=== PATIENT | female | born 1965 | race Caucasian/White ===

== ENCOUNTER 2017-04-16 13:53 | Observation (INO) | payer BC ==
--- NOTE | 2017-04-16 14:18 | RAD ---
AP CHEST: Indication: Chest pain. FINDINGS: No acute cardiopulmonary abnormality. The examination is stable to the most recent comparison dated 03-03-17. COMMENTS: No acute cardiopulmonary demonstrated. POS: [facility]
[2017-04-16] MEDS ORDERED: Nitroglycerin 2% Ointment 1 INCH/1 GM Packet ONE (14:24)
[2017-04-16 14:29] LABS: #Basophils 0.1 thou/uL (0.0-0.2); #Eosinphils 0.1 thou/uL (0.0-0.7); #Lymphocytes 2.5 thou/uL (1.20-3.40); #Monocytes 0.7 thou/uL (0.11-0.59); #Neutrophils 9.3 thou/uL (1.40-6.50); %Basophils 0.8 % (0.0-1.0); %Eosinophils 0.7 % (0.0-10.0); %Lymphocytes 19.5 % (21.0-51.0); %Monocytes 5.6 % (0.0-10.0); Hematocrit 38.6 % (36.0-47.0); Mean Platelet Volume 9.1 fL (7.4-10.4); Red Blood Cell (RBC) Count 4.33 mill/uL (4.20-5.40); White Blood Cell (WBC) Count 12.7 thou/uL (4.8-10.8)
[2017-04-16 14:34] LABS: PTT 31.4 SEC (22.9-36.1); Prothrombin Time 12.6 SEC (12.0-14.7)
[2017-04-16 14:45] LABS: ALT (SGPT) 9 U/L (8-55); AST (SGOT) 9 U/L (5-34); Alkaline Phosphatase 89 U/L (40-150); Anion Gap 15 mmol/L (10-20); BUN (Urea Nitrogen) 13 mg/dL (9.8-20.1); Bilirubin, Total 0.3 mg/dL (0.2-1.2); CK (CPK) 34 U/L (29-168); Calc. Creatinine Clearance 0 mL/min (70-130); Calcium 8.6 mg/dL (7.8-10.44); Carbon Dioxide 24 mmol/L (22-29); Chloride 106 mmol/L (98-107); Estimated GFR-MDRD Greater than 90; Globulin 2.7 g/dL (2.4-3.5); Lipase 17 U/L (8-78); Protein, Total 6.4 g/dL (6.0-8.3); Troponin I Less than 0.010 ng/mL (< 0.028)
[2017-04-16 16:38] VITALS: BMI 31.4
[2017-04-16] MEDS: Nitroglycerin 2% Ointment 1 INCH/1 GM Packet TOP SCH ×2 (17:22→23:09)
[2017-04-16 17:45] LABS: Troponin I Less than 0.010 ng/mL (< 0.028)
[2017-04-16] MEDS: Metoprolol Tartrate 25 MG TAB PO SCH (20:29)
[2017-04-16 20:58] LABS: Troponin I Less than 0.010 ng/mL (< 0.028)
--- NOTE | 2017-04-16 20:58 | CT ---
CT CHEST CT ABDOMEN AND PELVIS AORTIC DISSECTION PROTOCOL 04/16/17 CLINICAL HISTORY: Chest pain, evaluation for aortic dissection. FINDINGS: Streak artifact from adjacent venous contaminate does limit assessment of the thoracic aorta. There is no definite acute aortic dissection. There is peripherally located calcified and noncalcified brittany que of the aorta. No evidence of aortic aneurysm or periaortic hematoma. 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 There is granulomatous calcification of the ches t. Mild pericardial effusion present. Heterogeneous enhancement of the liver and spleen present on t he basis of arterial phase scan. There is a hyperdensebattery pack of a neural stimulator device of the left lower flank subcutaneous tissues producing streak artifact. There is postoperative intradis china prosthesis of the lumbosacral junction. IMPRESSION: No evidence of an acute aortic dissection, aneurysm, or periaortic hematoma. There is diffuse calcif ied and noncalcified aortic plaque. Additional details are described above. POS: [facility]
[2017-04-16] MEDS ORDERED: Atorvastatin Calcium 40 MG TAB PO SCH (21:00)
[2017-04-16] MEDS ORDERED: clonazePAM 0.5 MG TAB PO SCH (21:00)
[2017-04-16] MEDS: TICAGRELOR 90 MG TABLET PO SCH (21:17)
[2017-04-16] MEDS ORDERED: HYDROcodone/Acetaminophen 7.5/325 mg Tablet PO PRN (21:18)
--- NOTE | 2017-04-17 01:59 | HP ---
HISTORY OF PRESENT ILLNESS: This is a 51-year-old white female being admitted for chest pain. The patient has a history of coronary artery disease, hypertension, hyperlipidemia who on 03/06 underwen t cardiac catheterization with placement of 2 stents. She had persistent chest pain and on 03/26 of this year had an additional stent placed. These were performed by Dr. Perdomo. The patient was doing well until approximately 2 weeks ago, developed an upper respiratory infection, she had a pers isting cough. One week ago, the patient was treated with Levaquin by Dr. Patricia. I believed yesterda y was her last dose; however, the patient continues to have a slight cough. Also for the past 3 day s, she has been having marked upper chest and neck pain bilaterally. Her cough has improved dramati cheo; however, she complains of pain with cough and movement. PAST MEDICAL HISTORY: Hypertension, hyperlipidemia, history of pheochromocytoma, status post resect ion in 2016 and tobacco abuse. PAST SURGICAL HISTORY: Include, lumbar surgery, hysterectomy, cholecystectomy, and placement of a n luciana stimulator on her back, bladder surgery, adrenal tumor removal for pheochromocytoma. MEDICATIONS: Lisinopril 20 mg q.a.m., Advil 800 b.i.d. p.r.n., Lipitor 40 mg daily, Zoloft 100 mg d ail, clonazepam 0.5 mg p.o. at bedtime, metoprolol 25 mg b.i.d., Brilinta 90 mg b.i.d., aspirin 81 mg daily. ALLERGIES: None. SOCIAL HISTORY: She smokes 1-1/2 packs of cigarettes per day for the past 30 years. She rarely dri nks alcohol. FAMILY HISTORY: Father had a NC at the age of 54, and a history of atrial fibrillation. Maternal g randfather with lung cancer. Maternal grandmother with colon cancer. Paternal grandmother with cer vical cancer. REVIEW OF SYSTEMS: As above. PHYSICAL EXAMINATION: VITAL SIGNS: Temperature 99.2, pulse 95, respirations 18, pulse ox 92, blood pressure 135/82. HEENT: Clear. HEART: Regular rate and rhythm. LUNGS: Clear. ABDOMEN: Soft. EXTREMITIES: No cyanosis, clubbing, edema. LABORATORY AND X-RAY FINDINGS: White count 12.7, H\T\H 13 and 38. Electrolytes normal. Creatinine 0.66, BUN 13, glucose 111, troponin less than 0.010 x2. Chest x-ray negative. ASSESSMENT: 1. Recurrent chest pain, rule out myocardial infarction; however, doubtful. Patient has marked cos tochondral tenderness on palpation, most likely due to costochondritis; however, must rule out also an aortic dissection. 2. Coronary artery disease, status post stent placement on 03/06/2017 and 03/26/2017. 3. Hypertension. 4. Hyperlipidemia. 5. Tobacco abuse. 6. Positive family history of heart disease. 7. History of pheochromocytoma excision. 8. Chronic back pain. PLAN: 1. Discuss with Dr. Salguero. Plan to do a CT angiogram of the chest to rule out aortic dissection . 2. Ice pack to chest. 3. Continue home medications. 4. Hopefully, can discharge in the a.m.
--- NOTE | 2017-04-17 02:05 | CON ---
DATE OF CONSULTATION: 04/16/2017 HISTORY OF PRESENT ILLNESS: Susan Eller is a 51-year-old white female with known coronary artery disease. In 02/2014, she underwent cardiac catheterization by Dr. Perdomo after an abnormal stress study. She had no left main disease and no LAD disease. The circumflex distal to the second obtuse marginal branch had 30-40% stenosis. The right coronary artery had 20-30 % mid stenosis. Ejection fraction was 50-55%. She did well until 02/28/2017. She had several episodes of chest pain lasting one-half hour. On 03/03/17, she had onset of pain at 9 a.m. that did not resolve and continued the whole day. Ultimately, she came to the emergency room at 17:33. She was given 1/2 inch nitro paste and aspirin 324 orally. She went to the telemetry, continued to have chest pain, was given 3 sublingual nitroglycerins and her pain dramatically improved and resolved. She did have positive cardiac enzymes. The day after admission, she then was taken to the cardiac cath rn by Dr. Perdomo. The left main, the LAD had no stenosis. She had 50% distal circumflex stenosis and then total occlusion of the distal circumflex. The right coronary artery had an 80% mid stenosis. She then underwent stent placement of the circumflex with Synergy 2.5 x 24 and 3.0 x 20. She was discharged on Brilinta. She continued to smoke after stent placement, although she had cut down. She then was brought back to the cardiac cath rn on 03/26/17 and underwent placement of Synergy 3.0 x 12 mm stent in the proximal RCA. This was postdilated with a 3.5 mm balloon. Perclose ProGlide was used for closure and she was discharged the same day. She states she has been compliant with her medicines. Approximately 1 week ago , she had an upper respiratory infection and was placed on antibiotics per a primary doctor. She states she has significant amount of coughing. Then 3 days ago, she started noticing a central chest pressure in the upper part of her chest that radiated to both sides of her neck. She states over the last 3 days, this pain has been continuous and unrelenting. The pain does not appear to be pleuritic in nature. She states the pain is worse if she is leaning forward and feels better when she is supine in bed. She came to the emergency room for further evaluation. PAST MEDICAL HISTORY: Hypertension, hypercholesterolemia. No history of diabetes. She has a history of pheochromocytoma. PAST OPERATIONS: Lumbar surgery, hysterectomy, cholecystectomy, placement of a nerve stimulator in her back, bladder surgery, removal of adrenal tumor that sounds like a pheochromocytoma. After that, she said her blood pressures are much easier to control. Coronary stent placement as above. CURRENT MEDICATIONS: Include aspirin 81 daily, Brilinta 90 mg b.i.d., sertraline 100 at bedtime, metoprolol 25 b.i.d., lisinopril 20 q.a.m., Advil 800 b.i.d., atorvastatin 40 at bedtime, clonazepam 1 tablet at bedtime. ALLERGIES: ADHESIVE TAPE. SOCIAL HISTORY: She smoked one and one half packs per day, but then he has cut down to several cigarettes per day. She rarely drinks. FAMILY HISTORY: Father had myocardial infarction in his 50s. REVIEW OF SYSTEMS: Twelve-point review of systems otherwise unremarkable. PHYSICAL EXAMINATION: VITAL SIGNS: Blood pressure 135/82, pulse of 95. HEENT: PERRL. NECK: Supple. CHEST: Clear. CARDIAC: S1 and S2 are normal, without any S3, S4, murmurs or rubs. Carotid upstrokes normal, without bruits. ABDOMEN: Normal bowel sounds, without tenderness or organomegaly. EXTREMITIES: Revealed no clubbing, cyanosis or edema. NEUROLOGIC: Grossly intact. SKIN: Warm and dry. MUSCULOSKELETAL: She does have mild palpable upper chest tenderness. LABORATORY DATA: EKG revealed sinus tachycardia with rate of 102 per minute. Poor R wave progression in V1-V2. There are no acute changes on the EKG. White count 12,700, hemoglobin 13.6, hematocrit 38.6, platelets 219,000. INR 0.9. Sodium 141, potassium 3.6, chloride 106, carbon dioxide 24, BUN 13, creatinine 0.66. Cardiac enzymes x2 are completely normal. IMPRESSION: 1. Noncardiac chest pain. At the present time with placement of coronary stents 3 weeks and 6 weeks ago, it is too early for in-stent restenosis. She does not have any evidence of acute stent thrombosis -- normal enzymes, even after 3 days of chest pain continuously and no acute changes on her EKG. I doubt that her pain is cardiac in nature. 2. Recent upper respiratory infection/possible bronchitis. 3. Kvx-NY-lmlajmony myocardial infarction in 02/2017, with placement of drug- eluting stents in the distal circumflex, that was totally occluded. She then returned 3 weeks ago to have a stent placed in the right coronary artery which also was a drug-eluting stent. 4. Hypertension. 5. Hypercholesterolemia. 6. Smoker. 7. Positive family history. 8. History of pheochromocytoma. PLAN: Ms. Eller's chest discomfort is not cardiac in nature. She does have some minimal palpable tenderness over the area. The most potentially life threatening problem that she could have causing this pain would be an aortic dissection and I will have her undergo CT angiography to rule out dissection. We will follow the patient with you. ALLAN
[2017-04-17] MEDS ORDERED: Ibuprofen 800 MG TAB PO PRN (08:13)
--- NOTE | 2017-04-17 08:46 | PRG ---
DATE OF SERVICE: 04/17/2017 TIME: 8:15 a.m. SUBJECTIVE: The patient continues to complain of sternal chest pain, worse on the left side radiati ng into the left neck. This is unrelieved with nitroglycerin overnight. She does get some temporar y relief with morphine, but she says it wears off rather quickly. Nothing else has been tried here in the hospital yet. PHYSICAL EXAMINATION: VITAL SIGNS: Temperature 98.7, pulse 87, respirations 16, blood pressure 147/79. GENERAL: This is a well-developed, well-nourished female in no apparent distress. NECK: Supple, with no lymphadenopathy, no carotid bruits heard. LUNGS: Chest is clear to auscultation bilaterally. CARDIOVASCULAR: Heart is regular rate and rhythm with no murmurs. There is reproducible costostern al chest pain at the level of the 4th and 5th rib on the left. She does state that the pain on exam is consistent with the same pain that she has been having over the last several days. ABDOMEN: Soft, nontender, nondistended with normoactive bowel sounds. EXTREMITIES: Show no clubbing, cyanosis, or edema. NEUROLOGIC: Nonfocal. LABS: Three sets of cardiac enzymes are negative with troponin less than 0.01. BNP is 53. CBC and CMP are normal. CT of the chest, abdomen, and pelvis with aortic dissection protocol showed no frandy dence of acute aortic dissection, aneurysm repair, aortic hematoma. There is diffuse calcified and noncalcified aortic plaque. ASSESSMENT: This is a 51-year-old female with a known history of coronary artery disease with recen t stent placement in February and March, presenting with left-sided sternal chest pain. 1. CT angio was negative for aortic dissection, however, no assessment was made of her coronary art eries. Dr. Perdomo has been consulted and has made the patient n.p.o. this morning. I am not cer tain what testing he wants to do, but will touch base with him today. 2. My suspicion is that her chest pain is actually costochondritis. For that reason, we will start her on high dose ibuprofen 800 mg t.i.d. and see if we can get some relief of her discomfort. It s eems to me that her pain is very reproducible on exam. 3. Hypertension. 4. Hypercholesterolemia. 5. Current smoker despite recommendations to quiet. This was addressed again this morning. 6. Disposition is dependent on what Dr. Perdomo orders and what we find regarding her coronary ar teries. If all appears well from a cardiac standpoint, she could potentially be discharged home for treatment of costochondritis as an outpatient.
[2017-04-17] MEDS ORDERED: Aspirin 325 MG TAB PO SCH (09:00)
[2017-04-17] MEDS ORDERED: Lisinopril 20 MG TAB PO SCH (09:00)
[2017-04-17] MEDS ORDERED: Ketorolac Tromethamine 30 MG/ML VIAL IVP SCH (11:45)
[2017-04-17 11:47] VITALS: BP 136/84
[2017-04-17] MEDS: Metoprolol Tartrate 25 MG TAB PO SCH (11:47)
[2017-04-17] MEDS: TICAGRELOR 90 MG TABLET PO SCH (11:47)
[2017-04-17 11:53] VITALS: TEMP 98.2
--- NOTE | 2017-04-17 14:53 | PRG ---
DATE OF SERVICE: 04/17/2017 SUBJECTIVE: Ms. Eller has continued to complain of chest pain. States it is 8/10, constant, wors e with sitting up. It is sharp in nature. Her CKs and troponins have all been negative. She recen mary kay underwent stent placement to the right coronary artery after an acute [place] in addition to a stent placement to the circumflex artery. PHYSICAL EXAMINATION: VITAL SIGNS: Blood pressure 136/84, pulse 73, temperature 98.2. LUNGS: Clear to auscultation. CARDIAC: Regular rate and rhythm with no new rubs, murmurs, thrills, or gallops. CHEST: She does have chest wall tenderness. ABDOMEN: Soft, nontender, nondistended. EXTREMITIES: No significant edema. IMPRESSION: 1. Chest wall pain. 2. Coronary artery disease. 3. Tobacco abuse. RECOMMENDATIONS: Ms. Baca symptoms are not felt to be consistent with acute coronary syndrome or angina. Her symptoms are reproducible and constant and positional. At this point, I would continu e ibuprofen. Will give 1 dose of Toradol. If her symptoms have improved, it would be okay from my standpoint to discharge home with close outpatient followup.
== END 2017-04-17 15:30 | disposition home or self-care (01) ==
LOC: SCSER 13:53 → 2SW 15:16
PROVIDERS: ADMIT Family Medicine; ATTEND Family Medicine
DX: R07.89 Other chest pain (principal); I25.10 Atherosclerotic heart disease of native coronary artery without angina pectoris; I25.2 Old myocardial infarction; I10 Essential (primary) hypertension; E78.00 Pure hypercholesterolemia, unspecified; F17.210 Nicotine dependence, cigarettes, uncomplicated; Z88.5 Allergy status to narcotic agent; Z88.8 Allergy status to other drugs, medicaments and biological substances; Z91.048 Other nonmedicinal substance allergy status; Z79.82 Long term (current) use of aspirin; Z79.899 Other long term (current) drug therapy; Z95.5 Presence of coronary angioplasty implant and graft; Z82.49 Family history of ischemic heart disease and other diseases of the circulatory system
CPT/HCPCS: 36415; 71010; 71275; 80053; 82550; 82553; 83690; 83880; 84484; 85025; 85610; 85730; 93005; 96374; 96375; 96376; G0378; J1885; J2270; J7620

== ENCOUNTER 2017-10-17 12:47 | Outpatient (CLI) | payer BC | END 2017-10-17 12:48 | disposition home or self-care (01) | LOC: BICCT 12:47 | PROVIDERS: ATTEND Family Medicine | DX: M54.16 Radiculopathy, lumbar region (principal); M54.6 Pain in thoracic spine; M47.892 Other spondylosis, cervical region; M99.81 Other biomechanical lesions of cervical region; Z98.890 Other specified postprocedural states | CPT/HCPCS: 72125; 72128; 72131 ==

== ENCOUNTER 2017-11-03 14:50 | Inpatient (IN) | payer BC ==
--- NOTE | 2017-11-03 15:09 | RAD ---
CHEST ONE VIEW: History: Chest pain. Comparison: 04-16-17 FINDINGS: Cardiac silhouette and pulmonary vasculature are unremarkable. Mediastinum is midline. Dorsal column stimulator leads overlie the thoracic spine. Calcified granulomata throughout the lungs are consisten t with healed granulomatous disease. No lobar consolidation or evidence of pneumothorax. Cardiac robert tor leads overlie the chest. IMPRESSION: 1. No active cardiopulmonary abnormalities are demonstrated. POS: [facility]
[2017-11-03 15:14] LABS: Hemoglobin 13.2 g/dL (12.0-16.0); Mean Corpuscular HGB CONC 34.5 g/dL (32.0-36.0); Mean Corpuscular Hemoglobin 32.1 pg (27.0-31.0); Mean Corpuscular Volume 93.3 fl (81.0-99.0); Mean Platelet Volume 7.9 fL (7.4-10.4); Platelet Count 131 thou/uL (130-400); RBC Distribution Width 12.2 % (11.5-14.5); Red Blood Cell (RBC) Count 4.09 mill/uL (4.20-5.40); White Blood Cell (WBC) Count 8.8 thou/uL (4.8-10.8)
[2017-11-03 15:20] LABS: INR-International Normal Ratio 1.1; Prothrombin Time 14.6 SEC (12.0-14.7)
[2017-11-03] MEDS ORDERED: Ondansetron ODT 4 MG TAB ONE (15:29)
[2017-11-03 15:36] LABS: Band 17 % (5-11); Lymphocytes 7 % (21-51); MDiff Complete? YES; Monocytes 3 % (0-10); Neutrophil 72 % (42-75); PLT Morphology Comment Appears Adequate; RBC Morphology Normal
[2017-11-03 15:38] LABS: ALT (SGPT) 11 U/L (8-55); AST (SGOT) 11 U/L (5-34); Albumin 3.5 g/dL (3.5-5.0); Alkaline Phosphatase 68 U/L (40-150); Anion Gap 15 mmol/L (10-20); BUN (Urea Nitrogen) 18 mg/dL (9.8-20.1); Bilirubin, Total 0.9 mg/dL (0.2-1.2); CK (CPK) 163 U/L (29-168); Calc. Creatinine Clearance 0 mL/min (70-130); Calcium 7.7 mg/dL (7.8-10.44); Carbon Dioxide 22 mmol/L (22-29); Chloride 98 mmol/L (98-107); Estimated GFR-MDRD 48; Glucose 147 mg/dL (70-105); Lipase 4 U/L (8-78); Potassium 3.1 mmol/L (3.5-5.1); Protein, Total 5.5 g/dL (6.0-8.3); Sodium 132 mmol/L (136-145)
[2017-11-03 15:42] LABS: CKMB 2.1 ng/mL (0-6.6); Troponin I Less than 0.010 ng/mL (< 0.028)
[2017-11-03] MEDS ORDERED: Piperacillin/Tazobactam 2.25 GM VIAL ONE (15:42)
[2017-11-03 16:34] LABS: Bilirubin Small (Negative); Blood, Urine Moderate (Negative); Clarity TURBID (Clear); Glucose, Urine (Dipstick) Negative (Negative); Leukocyte Large (Negative); Nitrite Negative (Negative); Protein, Urine (Dipstick) 100 mg/dL (Neg-Trace); Specific Gravity, Urine 1.014 (1.002-1.036); Urobilinogen 0.2 mg/dL (0.2-1.0); pH, Urine 5.5 (5.0-9.0)
[2017-11-03 16:37] LABS: Bacteria/HPF 1+ HPF (None Seen); Hyaline Casts/LPF 4-6 HYALINE CAST LPF (0-3 Hyaline); Pathc Cast-AUWi Flag 1.59 (0-2.49)
[2017-11-03 16:39] LABS: Yeast-AUWi Flag 123.5 (0-25.0)
[2017-11-03 16:47] LABS: Yeast-All Forms None Seen HPF (None Seen)
[2017-11-03] MEDS ORDERED: Acetaminophen 500 MG TAB ONE (18:01)
[2017-11-03] MEDS ORDERED: Ondansetron HCl/PF 4 MG/2 ML Vial IVP PRN (18:36)
[2017-11-03] MEDS ORDERED: Ondansetron ODT 4 MG TAB SL PRN (18:36)
[2017-11-03 18:55] LABS: Lactic Acid 0.7 mmol/L (0.5-2.2)
--- NOTE | 2017-11-03 19:30 | RAD ---
ONE VIEW CHEST: HISTORY: Central line placement. COMPARISON: 11/03/2017 FINDINGS: Portable upright chest demonstrates a right-sided central venous catheter, with the distal tip projec ting over the superior vena cava. No pneumothorax. Redemonstration of a stable cardiac silhouette a nd changes due to previous granulomatous disease. Interval development of opacities in both lung bas es, which is presumed to be due to infiltrate. Dorsal column stimulator is redemonstrated. IMPRESSION: 1. Interval opacification in the lung bases suggesting infiltrate. 2. Changes due to previous granulomatous disease. 3. Right-sided central venous catheter placement. No pneumothorax. The distal tip projects over th e superior vena cava. POS: [facility]
[2017-11-03] MEDS ORDERED: Sodium Chloride 0.9% 1,000 ML IV SCH (19:43)
[2017-11-03] MEDS ORDERED: HYDROcodone/Acetaminophen 5/325 mg Tablet PO PRN (19:43)
[2017-11-03] MEDS ORDERED: Ondansetron ODT 4 MG TAB PO PRN (19:43)
[2017-11-03 20:07] LABS: #Lymphocytes 0.7 thou/uL (1.20-3.40); #Monocytes 0.6 thou/uL (0.11-0.59); #Neutrophils 5.8 thou/uL (1.40-6.50); %Basophils 0.4 % (0.0-1.0); %Eosinophils 0.2 % (0.0-10.0); %Lymphocytes 10.2 % (21.0-51.0); %Monocytes 7.7 % (0.0-10.0); %Neutrophils 81.6 % (42.0-75.0); Hemoglobin 11.8 g/dL (12.0-16.0); Mean Corpuscular HGB CONC 34.4 g/dL (32.0-36.0); Mean Corpuscular Volume 93.1 fl (81.0-99.0); Mean Platelet Volume 7.9 fL (7.4-10.4); Platelet Count 123 thou/uL (130-400); RBC Distribution Width 12.2 % (11.5-14.5); Red Blood Cell (RBC) Count 3.69 mill/uL (4.20-5.40); White Blood Cell (WBC) Count 7.1 thou/uL (4.8-10.8)
--- NOTE | 2017-11-03 20:41 | HP ---
DATE OF ADMISSION: 11/03/2017 CHIEF COMPLAINT: Intractable nausea and vomiting. HISTORY OF PRESENT ILLNESS: This is a 52-year-old morbidly obese white female with known history of coronary artery disease status post stents x3, the last stent in March of last year. The patient was in her usual state of health until she started having nausea and vomiting. This was on Friday , which progressed to having a diarrhea yesterday. She was having some chills and rigors, but did no t check her fevers and she was having severe headache and, body pains and severe weakness, so when vashti johnathan came to the ER, she had very low blood pressures of 105/70 with a known history of hypertension on lisinopril and her heart rate was 110, so she was started on 3 liters of nasal cannula and her blood pressures still remained low at 90/45 with still being tachycardic. Patient denies having any chest pain. She does have nausea. No dizziness. No abdominal pain, but she does have burning on passing urine, frequent urination. She denies having any sick contact. She had a UA done in the ER which sh owed a flank evidence of urinary tract infection. She had a chest x-ray with no evidence of any acut e cardiopulmonary abnormalities were noted. The patient having low blood pressures, so she was started on central line in a view to start on pres sors, so she was admitted to the IMCU at this time. The patient is seen in the IMCU. She was alert and oriented. She had blood pressures and did come up with the fluids. PAST MEDICAL HISTORY: 1. Coronary artery disease. 2. Hypertension. 3. Hyperlipidemia. 4. History of pheochromocytoma, status post resection in 2015. PAST SURGICAL HISTORY: 1. History of pheochromocytoma, status post resection in 2015. 2. Coronary artery disease, status post stent in 2016. 3. History of hysterectomy. 4. History of cholecystectomy. 5. History of placement of neck stimulator on her back. 6. History of bladder surgery. 7. Adrenal tumor, removal of pheochromocytoma which explained above. ALLERGIES: No known drug allergies. SOCIAL HISTORY: The patient smokes one and half pack a day for the past 30 years. No history of alc ohol, no history of illicit drug use. FAMILY HISTORY: Father had [place] at age 54, history of atrial fibrillation, maternal grandfather had jayant ng cancer and maternal grandmother had a colon cancer. REVIEW OF SYSTEMS: All 12 systems are reviewed with the patient thoroughly and found to be negative at this time except the ones described in HPI. The following complete review of systems was negative , unless otherwise mentioned in the HPI or below: Constitutional: Weight loss or gain, sense of wel l-being, ability to conduct usual activities, exercise tolerance. Skin/Breast: Rash, itching, chung es in hair growth or loss, nail changes, breast lumps, tenderness, swelling, nipple discharge. Eyes: Vision, double vision, tearing, blind spots, pain. ENT/Mouth: Headaches (location, time of onset, duration, precipitating factors), vertigo, lightheade dness, injury. Vision, double vision, tearing, blind spots, pain, nose bleeding, colds, obstruction, discharge, dental difficulties, gingival bleeding, dentures, neck stiffness, pain, tenderness, masses in thyroid or other areas. Cardiovascular: Precordial pain, substernal distress, palpitations, syn cope, dyspnea on exertion, orthopnea, nocturnal paroxysmal dyspnea, edema, cyanosis, hypertension, he art murmurs, varicosities, phlebitis, claudication. Respiratory: Pain, shortness of breath, wheezin g, stridor, cough, hemoptysis, fever or night sweats. Gastrointestinal: Poor appetite, dysphagia, i ndigestion, abdominal pain, heartburn, eructation, nausea, vomiting, hematemesis, jaundice, constipat ion, or diarrhea, abnormal stools (asif-colored, tarry, bloody, greasy, foul smelling), flatulence, h emorrhoids, recent changes in bowel habits. Genitourinary: Urgency, frequency, dysuria, nocturia, h ematuria, polyuria, oliguria, unusual (or change in) color of urine, stones, hesitancy, change in siz e of stream, dribbling, acute retention or incontinence, libido, potency. Musculoskeletal: Pain, sw elling, redness or heat of muscles or joints, limitation, of motion, muscular weakness, atrophy, cram ps. Neurologic/Psychiatric: Convulsions, paralyses, tremor, incoordination, parasthesias, difficulties w ith memory of speech, sensory or motor disturbances, or muscular coordination (ataxia, tremor), emoti onal problems, anxiety, depression, previous psychiatric care, unusual perceptions, hallucinations. Allergy/Immunologic: Skin rash, anemia, bleeding tendency, polydipsia, polyuria, intolerance to heat or cold. HOME MEDICATIONS: 1. Aspirin 81 mg p.o. daily. 2. Atorvastatin 40 mg p.o. daily. 3. Clonazepam 1 tablet p.o. daily at bedtime. 4. Ibuprofen 800 mg p.o. b.i.d. 5. Lisinopril 20 mg p.o. daily. 6. Metoprolol 25 mg p.o. b.i.d. 7. Sertraline 100 mg p.o. at bedtime. 8. Ticagrelor 90 mg p.o. daily. PHYSICAL EXAMINATION: VITAL SIGNS: Blood pressures are 125/80, heart rate is 88, respirations 18, saturation 98%. GENERAL: The patient is moderately built morbidly obese. She is alert, oriented x3. HEENT: Atraumatic, normocephalic. PERRLA. Extraocular movements were intact. Oral mucosa pink and moist. CARDIOVASCULAR: S1, S2 normal. No murmurs, rubs or gallops. LUNGS: Bilateral air entry was equal. No wheezing, no crackles. ABDOMEN: Soft, nontender, no guarding, no rebound tenderness. Bowel sounds normal. MUSCULOSKELETAL: No calf tenderness. No pedal edema. No joint tenderness, no joint swelling. SKIN: No cyanosis, no erythema, no rash, no pallor. CENTRAL NERVOUS SYSTEM: Cranial examination II-XII intact. No focal deficits are noted. PSYCHIATRIC: No signs of suicidal ideation. No signs of noel. No signs of depression was noted. LABORATORY DATA: Sodium is 132, potassium 3.1, chloride is 98, BUN is 18, creatinine is 1.18. Lacti c acid is 2.7. BNP is 43. WBC is 8.8, hemoglobin is 13.2. Bands of 17. UA was positive for urinar y tract infection. IMAGING STUDIES: Chest x-ray was reviewed by me which showed no evidence of any acute cardiopulmonar y process. ASSESSMENT: 1. Septic shock. 2. Acute pyelonephritis. 3. Severe dehydration. 4. Acute kidney injury. 5. History of coronary artery disease. 6. Hyperlipidemia. PLAN: 1. Plan is to continue the patient on IV fluids at 150 mL an hour, will closely monitor and if neede d, we will start the patient on pressors. The patient has a central line placed in the ER. We will start the patient on IV antibiotics with a broad spectrum starting on Zosyn and vancomycin as per [facility] protocol. 2. The patient has history of coronary artery disease. No evidence of any chest pain. We will cont inue with IV fluids and continue the patient on aspirin and ticagrelor and the beta blockers. 3. We will hold off on the lisinopril. 4. Patient has severe dehydration as explained above. We will just continue the patient on IV fluid s at 150 an hour. We will closely monitor the urine output. 5. The patient has history of hyperlipidemia. We will continue the patient on the home medications atorvastatin. 6. Code status has been discussed. The patient is FULL code. 7. Deep venous thrombosis prophylaxis. Lovenox 40 mg subcu daily. I spent 75 minutes with this patient of this one hour as a critical care time.
[2017-11-03] MEDS: Sodium Chloride 0.9% 1,000 ML IV SCH (20:43)
[2017-11-03] MEDS ORDERED: Vancomycin HCl 1 GM in Sodium Chloride 0.9% 250 ML 250 ML IVPB SCH (21:00)
[2017-11-03] MEDS: Metoprolol Tartrate 25 MG TAB PO SCH (21:46)
[2017-11-03] MEDS: Famotidine 20 MG TAB PO SCH (21:47)
[2017-11-03] MEDS: Docusate 100 MG CAP PO SCH (21:47)
[2017-11-03] MEDS: Atorvastatin Calcium 40 MG TAB PO SCH (21:48)
[2017-11-03] MEDS: clonazePAM 0.5 MG TAB PO SCH (21:48)
[2017-11-03] MEDS: Acetaminophen 325 MG TAB PO PRN (21:48)
[2017-11-03] MEDS: TICAGRELOR 90 MG TABLET PO SCH (21:52)
[2017-11-03] MEDS: Piperacillin/Tazobactam 4.5 GM in Sodium Chloride 0.9% 100 ML IVPB SCH (23:27)
[2017-11-03] MEDS ORDERED: Piperacillin/Tazobactam 3.375 GM in Sodium Chloride 0.9% 100 ML IVPB SCH (23:59)
[2017-11-04] MEDS: Sodium Chloride 0.9% 1,000 ML IV SCH ×3 (03:25→17:41)
[2017-11-04] MEDS ORDERED: Vancomycin HCl 1.5 GM in Sodium Chloride 0.9% 250 ML 300 ML IVPB SCH (04:00)
[2017-11-04] MEDS: Piperacillin/Tazobactam 4.5 GM in Sodium Chloride 0.9% 100 ML IVPB SCH ×3 (06:36→17:39)
[2017-11-04] MEDS: Acetaminophen 325 MG TAB PO PRN (06:36)
[2017-11-04 07:25] LABS: Anion Gap 13 mmol/L (10-20); BUN (Urea Nitrogen) 9 mg/dL (9.8-20.1); Calc. Creatinine Clearance 139 mL/min (70-130); Calcium 7.5 mg/dL (7.8-10.44); Carbon Dioxide 21 mmol/L (22-29); Chloride 101 mmol/L (98-107); Estimated GFR-MDRD 81; Glucose 119 mg/dL (70-105); Sodium 132 mmol/L (136-145)
[2017-11-04 07:36] LABS: Potassium 2.8 mmol/L (3.5-5.1)
[2017-11-04] MEDS: Metoprolol Tartrate 25 MG TAB PO SCH ×2 (08:13→21:06)
[2017-11-04] MEDS: Famotidine 20 MG TAB PO SCH ×2 (08:13→21:05)
[2017-11-04] MEDS: Enoxaparin Sodium 40 MG/0.4 ML SYRINGE SC SCH (08:13)
[2017-11-04] MEDS: TICAGRELOR 90 MG TABLET PO SCH ×2 (08:13→21:05)
[2017-11-04] MEDS: Docusate 100 MG CAP PO SCH ×2 (08:13→21:06)
--- NOTE | 2017-11-04 10:42 | CON ---
DATE OF CONSULTATION: 11/04/2017 HISTORY OF PRESENT ILLNESS: This is a 52-year-old apparently employee of [employer] who pre sented to the hospital with a 3-day history of nausea, vomiting, and profuse diarrhea. In 04/2017, she saw Dr. Perdomo for chest pain and had 2 stents placed in for a post-TX, had a card iac catheterization, coronary artery disease. She smokes a pack a day. Regarding this recent episode, Friday she said she was nauseated and vomi ting. On Friday she started having profuse diarrhea. Diarrhea has persisted until she became weak a nd was brought to the hospital. PAST MEDICAL HISTORY: Hypertension, history of hyperlipidemia, history of pheochromocytoma, history of ongoing tobacco abuse, COPD, asthma. PAST SURGICAL HISTORY: Lumbar surgery, hysterectomy, cholecystectomy, neck stimulator, bladder surge ry, adrenal tumor removed, pheochromocytoma, recent 2 stents placed in. In the ER blood pressure was 65/47, glucose 176, 99 kilos. Sats 97% on room air. She has been hydrated feeling better, but still having diarrhea. She is having some vague abdominal pain. MEDICATIONS: List of medicine from home includes Seroquel 50, Advair 115/21, VESIcare 5, clonazepam 1 tablet at bedtime, Zoloft 200, lisinopril 20, Lipitor 40, Brilinta 90 twice a day, metoprolol 25 b. i.d. ALLERGIES: HYDROCODONE, NORCO. Since admission, she was started on Levaquin, Zosyn, and vancomycin. TOBACCO: Tobacco a pack a day. ALCOHOL: None. SUBSTANCE ABUSE: Negative. REVIEW OF SYSTEMS: Ten point negative. PHYSICAL EXAMINATION: VITAL SIGNS: Blood pressure 120/50. Sats are 92% on room air, respiration rate 18, pulse 104. Maxi mum temperature 102 last night. CHEST: Chest reveals diffuse wheezing. CARDIAC: Normal S1, S2, no gallops. ABDOMEN: Soft, no masses. LABORATORY: White count 10,000, H&H 11 and 34, platelet count 123. Electrolytes are normal except p otassium 2.8. Urine shows WBC greater than 50. IMPRESSION: 1. Nausea, vomiting, gastroenteritis, etiology unclear. 2. Urinary tract infection. 3. Chronic obstructive pulmonary disease. 4. Asthma. 5. Electrolyte imbalance. 6. Depression. 7. Coronary artery disease. PLAN: I ordered stool for culture. Continue antibiotics as prescribed. Await sensitivities. I started neb treatments and Dulera. Will follow while in the IMCU. She is strongly advised to refrain from smoking. If she has already not had a pneumococcal vaccination she is encouraged to get one. 70 minutes consultation time, more than 50% spent in direct patient care.
[2017-11-04] MEDS: Potassium Chloride 20 MEQ TAB PO SCH ×2 (12:14→21:05)
[2017-11-04] MEDS ORDERED: Potassium Chloride 20 MEQ TAB PO SCH (12:15)
[2017-11-04] MEDS ORDERED: SALMETEROL INH PRN (12:18)
[2017-11-04] MEDS ORDERED: [UNRECOGNIZED DRUG - OTHER] INH PRN (12:18)
[2017-11-04] MEDS ORDERED: FLUTICASONE INH PRN (12:18)
--- NOTE | 2017-11-04 12:22 | PDOC.PN ---
- Subjective Encounter Start Date: 11/04/17 Encounter Start Time: 12:15 Subjective: f/u for septic shock from UTI with e. coli. Currently on Zosyn, Vancomycin -: and Levaquin, final sensitivities pending. Feels better overall and but -: still cold. - Objective Resuscitation Status: Resuscitation Status FULL:Full Resuscitation MAR Reviewed: Yes Vital Signs & Weight: Vital Signs (12 hours) Temp Pulse Resp BP BP Pulse Ox 11/04/17 11:52 98.2 F 82 19 94/56 L 100 11/04/17 11:02 83 16 98 11/04/17 07:48 98.4 F 105 H 18 97 11/04/17 07:38 98.4 F 105 H 18 119/65 92 L 11/04/17 06:00 102.1 F H 11/04/17 04:00 104 H 20 120/50 L 97 11/04/17 02:00 96 107/58 L 99 Weight Weight 226 lb 4.8 oz I&O: 11/03/17 11/04/17 11/05/17 06:59 06:59 06:59 Intake Total 3292 Output Total 1575 Balance 1717 Result Diagrams: 11/03/17 19:59 11/04/17 06:52 Additional Labs: Microbiology 11/04/17 03:50 Stool C. difficile GDH Antigen & Toxins - Final 11/03/17 18:20 Nasal swab Influenza Types A,B Direct EIA - Final 11/03/17 19:59 Venous blood - Left Arm Blood Culture - Preliminary Specimen has been received and culture in progress. No Growth to date. 11/03/17 16:10 Urine voided Urine Culture - Preliminary Escherichia coli 11/03/17 14:58 Venous blood - Left Arm Blood Culture - Preliminary Specimen has been received and culture in progress. No Growth to date. 11/03/17 14:56 Venous blood - Right Arm Blood Culture - Preliminary Gram Positive Cocci Laboratory Tests 11/03/17 11/03/17 11/03/17 14:56 14:56 14:56 Band Neuts % (Manual) 17 H Sodium 132 L Potassium 3.1 L Creatinine 1.18 H Estimated GFR (MDRD) 48 Lactic Acid 2.7 H 11/03/17 17:45 Band Neuts % (Manual) Sodium Potassium Creatinine Estimated GFR (MDRD) Lactic Acid 0.7 EKG Reviewed by me: Yes (Tele - sinus tachycardia) Phys Exam - Physical Examination Constitutional: NAD alert, talkative HEENT: PERRLA, moist MMs, sclera anicteric, oral pharynx no lesions Neck: no nodes, no JVD, supple exp wheezing, diminished in bases Respiratory: no rhonchi Cardiovascular: RRR, no significant murmur, no rub, gallop Gastrointestinal: soft, non-tender, no distention, positive bowel sounds Musculoskeletal: no edema, pulses present Neurological: non-focal, normal sensation, moves all 4 limbs Psychiatric: normal affect, A&O x 3 Skin: no rash, normal turgor, cap refill <2 seconds Dx/Plan (1) Septic shock due to Escherichia coli Code(s): A41.51 - SEPSIS DUE TO ESCHERICHIA COLI [E. COLI]; R65.21 - SEVERE SEPSIS WITH SEPTIC SHOCK Status: Acute Comment: Continue IV NS 150ml/h, continue broad-spectrum abx pending final sensitivities, d/c Vancomycin (2) E. coli UTI Code(s): N39.0 - URINARY TRACT INFECTION, SITE NOT SPECIFIED; B96.20 - UNSP ESCHERICHIA COLI THE CAUSE OF DISEASES CLASSD ELSWHR Status: Acute Comment: See above, likely can de-escalate abx regimen pending review of sensitivities (3) ROSETTA (acute kidney injury) Code(s): N17.9 - ACUTE KIDNEY FAILURE, UNSPECIFIED Status: Acute Comment: Improved with IVF's, continue IVF's, avoid nephrotoxic agents and limit contrast exposure (4) Hypokalemia Code(s): E87.6 - HYPOKALEMIA Status: Acute Comment: KCL 40meq x 1 now, then BID, repeat K+ level in am (5) Tobacco abuse Code(s): Z72.0 - TOBACCO USE Status: Acute Comment: Tobacco cessation resources - Plan continue antibiotics, DVT proph w/SCDs Continue Levaquin and Zosyn another 24h -: De-escalate abx coverage in 24h -: Continue IVF's -: Resume Advair Discus Inh -: KCL 40meq BID * AM lab: BMP, CBC
[2017-11-04 14:46] VITALS: BMI 33.4
[2017-11-04] MEDS ORDERED: Mometasone/Formoterol 120 PUFF INHALER INH SCH (18:30)
[2017-11-04] MEDS: Mometasone/Formoterol 120 PUFF INHALER INH SCH (18:50)
[2017-11-04] MEDS: Ketorolac Tromethamine 30 MG/ML VIAL IVP PRN (19:07)
[2017-11-04] MEDS ORDERED: Loperamide HCl 2 MG CAP PO PRN ×2 (19:14→19:15)
[2017-11-04] MEDS ORDERED: QUETIAPINE FUMARATE 50 MG PO SCH (21:00)
[2017-11-04] MEDS: Atorvastatin Calcium 40 MG TAB PO SCH (21:05)
[2017-11-04] MEDS: clonazePAM 0.5 MG TAB PO SCH (21:05)
[2017-11-04] MEDS: TROSPIUM 20 MG TABLET PO SCH (21:07)
[2017-11-04] MEDS: QUEtiapine Fumarate ER 50 MG TAB PO SCH (21:43)
[2017-11-05] MEDS: Piperacillin/Tazobactam 4.5 GM in Sodium Chloride 0.9% 100 ML IVPB SCH ×4 (00:04→19:31)
[2017-11-05] MEDS: Sodium Chloride 0.9% 1,000 ML IV SCH ×2 (03:09→14:22)
[2017-11-05 05:38] LABS: Anion Gap 7 mmol/L (10-20); BUN (Urea Nitrogen) 5 mg/dL (9.8-20.1); Calc. Creatinine Clearance 156 mL/min (70-130); Calcium 7.5 mg/dL (7.8-10.44); Carbon Dioxide 24 mmol/L (22-29); Chloride 106 mmol/L (98-107); Estimated GFR-MDRD Greater than 90; Glucose 108 mg/dL (70-105); Potassium 3.1 mmol/L (3.5-5.1); Sodium 134 mmol/L (136-145)
[2017-11-05 07:26] LABS: Band 20 % (5-11); Hemoglobin 9.6 g/dL (12.0-16.0); Lymphocytes 18 % (21-51); MDiff Complete? YES; Mean Corpuscular HGB CONC 35.2 g/dL (32.0-36.0); Mean Corpuscular Hemoglobin 33.1 pg (27.0-31.0); Mean Corpuscular Volume 94.2 fl (81.0-99.0); Mean Platelet Volume 8.5 fL (7.4-10.4); Monocytes 6 % (0-10); Neutrophil 56 % (42-75); PLT Morphology Comment Appears Decreased; Platelet Count 98 thou/uL (130-400); Polychromasia SLIGHT = 2-3 cells (100X) (0-2/hpf); RBC Distribution Width 12.1 % (11.5-14.5); Red Blood Cell (RBC) Count 2.91 mill/uL (4.20-5.40); White Blood Cell (WBC) Count 4.8 thou/uL (4.8-10.8)
[2017-11-05] MEDS: Mometasone/Formoterol 120 PUFF INHALER INH SCH ×2 (08:00→18:03)
[2017-11-05] MEDS: Famotidine 20 MG TAB PO SCH ×2 (08:56→20:27)
[2017-11-05] MEDS: TICAGRELOR 90 MG TABLET PO SCH ×2 (08:56→21:33)
[2017-11-05] MEDS: Docusate 100 MG CAP PO SCH ×2 (08:56→20:28)
[2017-11-05] MEDS: Ketorolac Tromethamine 30 MG/ML VIAL IVP PRN ×2 (08:57→15:54)
[2017-11-05] MEDS: Enoxaparin Sodium 40 MG/0.4 ML SYRINGE SC SCH (08:57)
[2017-11-05] MEDS: Metoprolol Tartrate 25 MG TAB PO SCH ×2 (08:57→20:27)
[2017-11-05] MEDS: Potassium Chloride 20 MEQ TAB PO SCH ×2 (08:58→20:25)
[2017-11-05] MEDS ORDERED: Sodium Chloride 0.9% 1,000 ML IV SCH ×3 (09:14→10:29)
[2017-11-05] MEDS: TROSPIUM 20 MG TABLET PO SCH ×2 (10:12→21:50)
--- NOTE | 2017-11-05 10:20 | PRG ---
DATE OF SERVICE: 11/05/2017 This morning she is much improved, less short of breath, less coughing, less wheezing, hypertension r esolved. PHYSICAL EXAMINATION: VITAL SIGNS: Blood pressure 130/88, sats are 90% room air, respiration 20, temperature 99. Urine is growing Escherichia coli. CHEST: Chest revealed decreased breath sounds, no wheezing. CARDIAC: Sinus tachycardia. ABDOMEN: Soft. LABORATORY: Shows 56 neutrophils, 20 bands. Urine culture is growing E. coli sensitive to present a ntibiotic. IMPRESSION: 1. Escherichia coli, sepsis shock, improved. 2. Chronic obstructive pulmonary disease, asthma, stable. 3. Major anxiety. PLAN: Switch over to oral Levaquin. Discontinue vancomycin. Continue Zosyn for another 24-48 hours . Continue ambulation. Home medications. I will follow.
--- NOTE | 2017-11-05 11:40 | PDOC.PN ---
- Subjective Encounter Start Date: 11/05/17 Encounter Start Time: 11:38 Subjective: feels better but still has loose stools.weak - Objective Resuscitation Status: Resuscitation Status FULL:Full Resuscitation MAR Reviewed: Yes Vital Signs & Weight: Vital Signs (12 hours) Temp Pulse Resp BP BP Pulse Ox 11/05/17 11:31 98.3 F 78 16 114/80 93 L 11/05/17 11:06 74 20 97 11/05/17 07:57 92 20 98 11/05/17 07:39 99.6 F 94 17 133/88 94 L 11/05/17 04:00 98.9 F 84 18 134/72 95 11/05/17 00:00 99.2 F 89 18 118/69 96 Weight Admit Weight 225 lb 11.2 oz Weight 227 lb 12.8 oz I&O: 11/04/17 11/05/17 11/06/17 06:59 06:59 06:59 Intake Total 3292 2040 Output Total 1575 1190 Balance 1717 850 Result Diagrams: 11/05/17 05:00 11/05/17 05:00 Additional Labs: Microbiology 11/04/17 03:50 Stool C. difficile GDH Antigen & Toxins - Final 11/03/17 18:20 Nasal swab Influenza Types A,B Direct EIA - Final 11/03/17 19:59 Venous blood - Left Arm Blood Culture - Preliminary Specimen has been received and culture in progress. No Growth to date. 11/03/17 16:10 Urine voided Urine Culture - Preliminary Escherichia coli 11/03/17 14:58 Venous blood - Left Arm Blood Culture - Preliminary Specimen has been received and culture in progress. No Growth to date. 11/03/17 14:56 Venous blood - Right Arm Blood Culture - Preliminary Coagulase Neg Staphylococcus Phys Exam - Physical Examination Constitutional: NAD HEENT: PERRLA, moist MMs, sclera anicteric, oral pharynx no lesions Neck: no nodes, no JVD, supple, full ROM Respiratory: no wheezing, no rales, no rhonchi, clear to auscultation bilateral Cardiovascular: RRR, no significant murmur, no rub, gallop Gastrointestinal: soft, non-tender, no distention, positive bowel sounds Musculoskeletal: no edema, pulses present Neurological: non-focal, normal sensation, moves all 4 limbs Psychiatric: normal affect, A&O x 3 Skin: no rash Dx/Plan (1) Septic shock due to Escherichia coli Code(s): A41.51 - SEPSIS DUE TO ESCHERICHIA COLI [E. COLI]; R65.21 - SEVERE SEPSIS WITH SEPTIC SHOCK Status: Acute Comment: improved. reduce NS. ABx based on Cx/S (2) ROSETTA (acute kidney injury) Code(s): N17.9 - ACUTE KIDNEY FAILURE, UNSPECIFIED Status: Acute Comment: Improved with IVF's, continue IVF's, avoid nephrotoxic agents and limit contrast exposure (3) E. coli UTI Code(s): N39.0 - URINARY TRACT INFECTION, SITE NOT SPECIFIED; B96.20 - UNSP ESCHERICHIA COLI THE CAUSE OF DISEASES CLASSD ELSWHR Status: Acute Comment: See above, likely can de-escalate abx regimen based on sensitivities (4) Hypokalemia Code(s): E87.6 - HYPOKALEMIA Status: Acute Comment: KCL 40meq x 1 now, then BID, repeat K+ level in am (5) Tobacco abuse Code(s): Z72.0 - TOBACCO USE Status: Acute Comment: Tobacco cessation resources (6) Hypertension Code(s): I10 - ESSENTIAL (PRIMARY) HYPERTENSION Status: Acute (7) CAD (coronary artery disease) Code(s): I25.10 - ATHSCL HEART DISEASE OF COUNCIL CORONARY ARTERY W/O ANG PCTRS Status: Chronic Comment: s/p stenting X3 02/2017 - Plan continue antibiotics, PT/OT, DVT proph w/SCDs cont levaquin Po and Zosyn.E.coli only resistant to ampicillin -: clinically better.reduce IVF. -: cont home meds including brilinta.ASA,BB.MIR-I on hold due to ROSETTA -: am labs.[facility] home tomorrow. OK to move to medical * . Review of Systems - Review of Systems Constitutional: weakness, malaise ENT: negative: Ear Pain, Ear Discharge, Nose Pain, Nose Discharge, Nose Congestion, Mouth Pain, Mouth Swelling, Throat Pain, Throat Swelling, Other Respiratory: negative: Cough, Dry, Shortness of Breath, Hemoptysis, SOB with Excertion, Pleuritic Pain, Sputum, Wheezing Cardiovascular: negative: chest pain, palpitations, orthopnea, paroxysmal nocturnal dyspnea, edema, light headedness, other Gastrointestinal: Diarrhea. negative: Nausea, Vomiting, Abdominal Pain, Constipation, Melena, Hematochezia, Other Genitourinary: negative: Dysuria, Frequency, Incontinence, Hematuria, Retention , Other Musculoskeletal: negative: Neck Pain, Shoulder Pain, Arm Pain, Back Pain, Hand Pain, Leg Pain, Foot Pain, Other Neurological: negative: Weakness, Numbness, Incoordination, Change in Speech, Confusion, Seizures, Other - Medications/Allergies Allergies/Adverse Reactions: Allergies Allergy/AdvReac Type Severity Reaction Status Date / Time adhesive Allergy SEVERE RASH Verified 04/17/17 00:00 acetaminophen [From [place]] AdvReac Mild Anxiety Verified 04/17/17 00:00 hydrocodone [From [place]] AdvReac Mild Anxiety Verified 04/17/17 00:00 Medications: Current Medications Hydrocodone Bitart/Acetaminophen ([place] 5/325) 1 tab PO Q4H PRN PRN Reason: Moderate Pain (4-6) Albuterol/Ipratropium (Duoneb) 3 ml NEB [id number] [facility] Last Admin: 11/05/17 11:06 Dose: 3 ml Aspirin (Aspirin Chewable) 81 mg PO DAILY [facility] Last Admin: 11/05/17 08:57 Dose: 81 mg Atorvastatin Calcium (Lipitor) 40 mg PO HS [facility] Last Admin: 11/04/17 21:05 Dose: 40 mg Clonazepam (Klonopin) 0.5 mg PO HS [facility] Last Admin: 11/04/17 21:05 Dose: 0.5 mg Docusate Sodium (Colace) 100 mg PO BID [facility] Last Admin: 11/05/17 08:56 Dose: Not Given Famotidine (Pepcid) 20 mg PO BID [facility] Last Admin: 11/05/17 08:56 Dose: 20 mg Piperacillin Sod/Tazobactam (Sod 4.5 gm/ Sodium Chloride) 100 mls @ 200 mls/hr IVPB Q6HR [facility] Last Admin: 11/05/17 05:09 Dose: 100 mls Sodium Chloride (Normal Saline 0.9%) 1,000 mls @ 50 mls/hr IV .Q20H [facility] Ketorolac Tromethamine (Toradol) 15 mg IVP Q6H PRN PRN Reason: Pain Stop: 11/09/17 17:55 Last Admin: 11/05/17 08:57 Dose: 15 mg Levofloxacin (Levaquin) 750 mg PO 0600 [facility] Loperamide HCl (Imodium) 2 mg PO PRN PRN PRN Reason: Diarrhea/Loose Stools Metoprolol Tartrate (Lopressor) 25 mg PO BID [facility] Last Admin: 11/05/17 08:57 Dose: 25 mg Mometasone Furoate/Formoterol Fumar (Dulera 200 Mcg/5 Mcg Inhaler) 2 puff INH BID-RT [facility] Last Admin: 11/05/17 08:00 Dose: 2 puff Ondansetron HCl (Zofran Odt) 4 mg PO Q6H PRN PRN Reason: Nausea/Vomiting Potassium Chloride (K-Dur) 40 meq PO BID [facility] Last Admin: 11/05/17 08:58 Dose: 40 meq Quetiapine Fumarate (Seroquel Xr) 50 mg PO HS [facility] Last Admin: 11/04/17 21:43 Dose: 50 mg Sertraline HCl (Zoloft) 100 mg PO HS [facility] Last Admin: 11/04/17 21:06 Dose: 100 mg Sodium Chloride (Flush - Normal Saline) 10 ml IVF Q12HR [facility] Last Admin: 11/04/17 21:08 Dose: 10 ml Sodium Chloride (Flush - Normal Saline) 10 ml IVF PRN PRN PRN Reason: Saline Flush Ticagrelor (Brilinta) 90 mg PO BID [facility] Last Admin: 11/05/17 08:56 Dose: 90 mg Trospium (Trospium) 20 mg PO BID [facility] Last Admin: 11/05/17 10:12 Dose: 20 mg
[2017-11-05] MEDS: clonazePAM 0.5 MG TAB PO SCH (20:27)
[2017-11-05] MEDS: Atorvastatin Calcium 40 MG TAB PO SCH (20:28)
[2017-11-05] MEDS ORDERED: clonazePAM 0.5 MG TAB PO SCH (21:00)
[2017-11-05] MEDS: QUEtiapine Fumarate ER 50 MG TAB PO SCH (21:33)
[2017-11-06] MEDS: Ketorolac Tromethamine 30 MG/ML VIAL IVP PRN (00:30)
[2017-11-06] MEDS: Piperacillin/Tazobactam 4.5 GM in Sodium Chloride 0.9% 100 ML IVPB SCH ×2 (00:32→06:01)
[2017-11-06 06:20] LABS: #Lymphocytes 0.7 thou/uL (1.20-3.40); #Monocytes 0.4 thou/uL (0.11-0.59); #Neutrophils 2.9 thou/uL (1.40-6.50); %Basophils 1.1 % (0.0-1.0); %Eosinophils 0.6 % (0.0-10.0); %Lymphocytes 17.9 % (21.0-51.0); %Monocytes 10.4 % (0.0-10.0); %Neutrophils 70.1 % (42.0-75.0); Hemoglobin 10.1 g/dL (12.0-16.0); Mean Corpuscular HGB CONC 34.9 g/dL (32.0-36.0); Mean Corpuscular Hemoglobin 32.7 pg (27.0-31.0); Mean Corpuscular Volume 93.6 fl (81.0-99.0); Mean Platelet Volume 8.3 fL (7.4-10.4); Platelet Count 106 thou/uL (130-400); RBC Distribution Width 12.4 % (11.5-14.5); Red Blood Cell (RBC) Count 3.08 mill/uL (4.20-5.40); White Blood Cell (WBC) Count 4.1 thou/uL (4.8-10.8)
[2017-11-06 06:38] LABS: Anion Gap 8 mmol/L (10-20); BUN (Urea Nitrogen) 6 mg/dL (9.8-20.1); Calc. Creatinine Clearance 148 mL/min (70-130); Calcium 7.9 mg/dL (7.8-10.44); Carbon Dioxide 26 mmol/L (22-29); Chloride 106 mmol/L (98-107); Estimated GFR-MDRD 86; Glucose 106 mg/dL (70-105); Potassium 3.9 mmol/L (3.5-5.1); Sodium 136 mmol/L (136-145)
[2017-11-06 08:16] VITALS: BP 112/72; TEMP 98.1
[2017-11-06] MEDS: Mometasone/Formoterol 120 PUFF INHALER INH SCH (08:18)
[2017-11-06] MEDS: TICAGRELOR 90 MG TABLET PO SCH (08:58)
[2017-11-06] MEDS: Metoprolol Tartrate 25 MG TAB PO SCH (08:59)
[2017-11-06] MEDS: TROSPIUM 20 MG TABLET PO SCH (08:59)
[2017-11-06] MEDS: Potassium Chloride 20 MEQ TAB PO SCH (08:59)
[2017-11-06] MEDS: Famotidine 20 MG TAB PO SCH (08:59)
[2017-11-06] MEDS: Docusate 100 MG CAP PO SCH (09:11)
--- NOTE | 2017-11-06 11:01 | PRG ---
DATE OF SERVICE: 11/06/2017 SUBJECTIVE: Awake, alert, responsive, no distress. No longer nausea or vomiting. All her GI stool culture were negative. OBJECTIVE: VITAL SIGNS: Sats are 100% on room air, respirations 16, temperature 98, pulse 84, blood pressure 11 2/72. LABORATORY DATA: White count is normal 4000, H&H is 10 and 28, platelet count is low 106, though it has improved since yesterday. Electrolytes are normal. IMPRESSION: 1. Nausea and vomiting, dehydration and hypertension, resolved. 2. Urinary tract infection sensitive to present Levaquin, improved. 3. Baseline underlying asthma, depression. PLAN: From the Pulmonary standpoint of view, she can be discharged home anytime. Follow up with primary care physician.
--- NOTE | 2017-11-06 12:45 | DIS ---
DATE OF ADMISSION: 11/03/2017 DATE OF DISCHARGE: 11/06/2017 CONDITION AT THE TIME OF DISCHARGE: Stable and improved. PRIMARY CARE PHYSICIAN: Poornima Patricia M.D. DISCHARGE DIAGNOSES: 1. Septic shock due to Escherichia coli urinary tract infection. 2. Acute renal insufficiency, improved. 3. Hypokalemia, improved. 4. History of hypertension and coronary artery disease. 5. Chronic obstructive pulmonary disease. 6. Tobacco abuse. DISCHARGE MEDICATIONS: New medications: Levofloxacin 750 mg p.o. daily for 7 more days, DuoNebs q.i .d. p.r.n., Florastor 250 mg daily for 10 days. Resume home medications as follows: Lopressor 25 b. i.d., Brilinta 90 b.i.d., Lipitor 40 mg daily, lisinopril 20 daily, sertraline 200 daily, clonazepam 1 tablet at bedtime, VESIcare 5 mg daily, Advair 2 puffs p.r.n., Seroquel XR 50 mg at bedtime. CONSULTATIONS: Pulmonary Critical Care Medicine. PROCEDURES DONE: Multiple chest x-rays. HISTORY OF PRESENTING ILLNESS: Ms. Eller is a very pleasant 52-year-old female with past medical h istory of coronary artery disease, hypertension, dyslipidemia, and COPD who presented to the hospital with complaints of intractable nausea and vomiting as well as some chills and rigor. Her main compl aint was headache, body pains and severe weakness. She was found to be hypotensive with blood pressu re 105/70 and tachycardic with heart rate of 110. She was started on normal saline and a sepsis work up was initiated as UA done in the emergency room showed evidence of UTI. She was initially admitted to [facility] because of low blood pressures and was started on empiric IV antibiotics. Please see admiss ion history and physical for further details. HOSPITAL COURSE: The patient had quick turnaround in her symptoms. Her urine culture was consistent with E. coli which was resistant to ampicillin and sulbactam. She was treated with IV Levaquin and IV Zosyn which were later changed to oral Levaquin and Zosyn. Eventually, her blood pressure stabili zed and she was no longer requiring IV fluids. She is back to her baseline and she is hemodynamicall y stable, so will be discharged back home today. She was seen and examined prior to discharge. All questions were answered and discharge plan was dis cussed with the patient who verbalized understanding. PHYSICAL EXAMINATION: GENERAL: This morning temperature 98.1, pulse of 84, respirations 16, saturating 96% on room air, bl ood pressure 112/72. GENERAL APPEARANCE: No acute distress, awake, alert, oriented x3. CHEST: Clear to auscultation except for mild wheezing for which she is going to be giving nebulizers for prescription. HEART: Rate and rhythm is regular. ABDOMEN: Soft, nontender, nondistended. LABORATORY DATA: CBC shows WBCs at 4.1, hemoglobin 10.1, platelet count of 106, which were 98 yester day. The platelet count has improved after discontinuation of subcutaneously Lovenox. Serum chemist organic jesus are unremarkable. Her stool was checked for Clostridium difficile, which was negative as well a s negative for various bacteria and parasite. Urine culture as above. Blood culture 1 out of 2 coag negative staph at 5 days, most likely a contaminant. She is cleared by Pulmonary Medicine for discharge as well. She was transferred to medical floor fro the [facility] a day prior to the discharge. She is encouraged to follow up with primary care physician in 5-7 days and be compliant with the [facility] cations.
[2017-11-06] MEDS ORDERED: clonazePAM 1 MG TAB PO SCH (21:00)
== END 2017-11-06 12:35 | disposition home or self-care (01) | DRG 871 ==
LOC: ERS 14:50 → IMCU/EMU 18:04 → ONC 11-05 15:58
PROVIDERS: ADMIT Family Medicine; ATTEND Family Medicine
PROC: 02HV33Z Insertion of Infusion Device into Superior Vena Cava, Percutaneous Approach (ICD-10-PCS; principal; 2017-11-03)
PROC: B548ZZA Ultrasonography of Superior Vena Cava, Guidance (ICD-10-PCS; 2017-11-03)
DX: A41.51 Sepsis due to Escherichia coli [E. coli] (principal); R65.21 Severe sepsis with septic shock; N17.9 Acute kidney failure, unspecified; N10 Acute pyelonephritis; N39.0 Urinary tract infection, site not specified; E66.01 Morbid (severe) obesity due to excess calories; E78.5 Hyperlipidemia, unspecified; I25.10 Atherosclerotic heart disease of native coronary artery without angina pectoris; E86.0 Dehydration; F17.210 Nicotine dependence, cigarettes, uncomplicated; Z88.5 Allergy status to narcotic agent; J44.9 Chronic obstructive pulmonary disease, unspecified; F32.9 Major depressive disorder, single episode, unspecified; Z68.33 Body mass index [BMI] 33.0-33.9, adult
CPT/HCPCS: 36556; 71045; 80048; 80053; 81003; 81015; 82553; 83605; 83690; 83880; 84484; 85007; 85025; 85027; 85610; 85730; 87040; 87045; 87046; 87077; 87086; 87149; 87186; 87324; 87449; 87804; 87899; 93005; 94640; 94760; 96361; 96365; A4216; J1885; J2543; J3370; J7050; J7620; Q0162

== ENCOUNTER 2018-03-06 10:55 | Outpatient (CLI) | payer BC | END 2018-03-06 10:56 | disposition home or self-care (01) | LOC: DTY/OP 10:55 | PROVIDERS: ATTEND Surgery | DX: E78.5 Hyperlipidemia, unspecified (principal); I10 Essential (primary) hypertension | CPT/HCPCS: 97802 ==

== ENCOUNTER 2019-01-01 07:36 | Outpatient (CLI) | payer BC ==
[2019-01-01 07:59] LABS: Bilirubin Negative (Negative); Blood, Urine Negative (Negative); Glucose, Urine (Dipstick) Negative (Negative); Leukocyte Negative (Negative); Nitrite Negative (Negative); Protein, Urine (Dipstick) Negative (Neg-Trace); Urobilinogen 0.2 mg/dL (0.2-1.0)
[2019-01-01 08:42] LABS: Anion Gap 14 mmol/L (10-20); BUN (Urea Nitrogen) 17 mg/dL (9.8-20.1); Calc. Creatinine Clearance 0 mL/min (70-130); Calcium 9.4 mg/dL (7.8-10.44); Carbon Dioxide 27 mmol/L (22-29); Chloride 104 mmol/L (98-107); Estimated GFR-MDRD 77; Glucose 95 mg/dL (70-105); Potassium 4.6 mmol/L (3.5-5.1); Sodium 140 mmol/L (136-145)
--- NOTE | 2019-01-01 09:07 | CT ---
Exam: Abdomen CT with and without contrast Pelvic CT with and without contrast HISTORY: Gross hematuria. FINDINGS: Abdomen CT: Calcified granulomas in both lower lobes. Linear opacities likely represent scar or atele ctasis. 0.9 x 0.7 cm solid nodule left costophrenic angle. Normal heart size. No significant pericardial fluid. Visualized aorta has caliber. Atherosclerotic ch anges noted Portal vein is patent. Surgically absent gallbladder Liver, spleen, pancreas and left adrenal gland have appropriate attenuation. Right adrenal gland is d ifficult to appreciate. No gastrohepatic, retrocrural or periportal lymphadenopathy No mesenteric mass, lymphadenopathy, free air or free fluid Limited evaluation of the alimentary canal by the lack of oral contrast. No evidence of bowel obstruc tion. Bariatric surgical changes are noted. Ileocecal junction is normal. Cecal apex is low-lying and noted to be within the pelvis. Appendix is difficult to appreciate. Nevertheless, no obvious infl ammation of the apex. Sigmoid colon diverticulosis. No evidence of colitis. Bilaterally no hydronephrosis, nephrolithiasis or perinephric fat stranding. Symmetric enhancement of the kidneys. No abnormal enhancing masses. Symmetric excretion into a decompressed and normally opacifying intrarenal collecting system. Bilateral ureters have a normal caliber. No hydroureter, per iureteral fat stranding or ureterolithiasis. Pelvis CT: No mass, lymphadenopathy, free air or free fluid. Hysterectomy changes. Contrast opacifies the dependent portion of the urinary bladder. No obvious filling defects. No lytic or blastic lesions in the osseous structures. Disc prosthesis at the lumbosacral junction as well as a dorsal column stimulator is noted. IMPRESSION: 1. No evidence of nephrolithiasis or obstructive uropathy. No abnormal enhancement in the left or rig ht renal cortex. 2. Diverticulosis, without evidence of diverticulitis. 3. Bariatric surgical changes. 4. Solid nodule in the left costophrenic angle. Code lung nodule
[2019-01-01 09:09] LABS: Bacteria/HPF 2+ HPF (None Seen); Clarity Slightly Cloudy (Clear); Hyaline Casts/LPF NONE SEEN LPF (0-3 Hyaline); RBC/HPF 0-3 HPF (0-3); Squamous Epithelial 0-3 HPF (0-3); WBC/HPF 0-3 HPF (0-3)
== END 2019-01-01 07:37 | disposition home or self-care (01) ==
LOC: SCSCT 07:36
PROVIDERS: ATTEND Urology
DX: N39.0 Urinary tract infection, site not specified (principal); R31.0 Gross hematuria; Z87.448 Personal history of other diseases of urinary system; K57.90 Diverticulosis of intestine, part unspecified, without perforation or abscess without bleeding; Z98.890 Other specified postprocedural states; R91.1 Solitary pulmonary nodule
CPT/HCPCS: 36415; 74178; 80048; 81001; 87077; 87086; 87186

== ENCOUNTER 2019-08-17 15:54 | Outpatient (CLI) | payer BC ==
--- NOTE | 2019-08-18 10:13 | MMO ---
Bilateral MAMMO Bilat Screen [facility]. CLINICAL HISTORY: Patient is 54 years old and is seen for screening. The patient has no family history of breast cancer. The patient has no personal history of cancer. The patient has a history of right Lumpectomy at age 28 - benign. VIEWS: The views performed were: bilateral craniocaudal with tomosynthesis; bilateral mediolateral oblique with tomosynthesis; left mediolateral oblique; and right exaggerated craniocaudal. FILMS COMPARED: The present examination has been compared to prior imaging studies performed at [facility] on 05/15/2017, and at [facility] on 01/03/2011. This study has been interpreted with the assistance of computer-aided detection. MAMMOGRAM FINDINGS: There are scattered fibroglandular densities. Finding 1: There are stable benign appearing calcifications seen in both breasts. Finding 2: There is a stable intramammary lymph node seen in the axillary tail of the right breast. There are no suspicious masses, suspicious calcifications, or new areas of architectural distortion. IMPRESSION: THERE IS NO MAMMOGRAPHIC EVIDENCE OF MALIGNANCY. A ROUTINE FOLLOW-UP MAMMOGRAM IN 1 YEAR IS RECOMMENDED. THE RESULTS OF THIS EXAM WERE SENT TO THE PATIENT. ACR BI-RADS Category 2 - Benign finding MAMMOGRAPHY NOTE: 1. A negative mammogram report should not delay a biopsy if a dominant of clinically suspicious mass is present. 2. Approximately 10% to 15% of breast cancers are not detected by mammography. 3. Adenosis and dense breasts may obscure an underlying neoplasm. Reported by: DARYL CAST MD Electonically Signed: [id number]
== END 2019-08-17 15:55 | disposition home or self-care (01) ==
LOC: BICMAMMO 15:54
PROVIDERS: ATTEND Family Medicine
DX: Z12.31 Encounter for screening mammogram for malignant neoplasm of breast (principal); Z98.890 Other specified postprocedural states
CPT/HCPCS: 77063; 77067